=== PATIENT | male | born 2000 ===

== ENCOUNTER 2018-09-27 00:49 | Emergency (ER) | payer SELFPAY ==
[2018-09-27] MEDS ORDERED: NS 1,000 ML IV ONE (00:53)
[2018-09-27] MEDS ORDERED: LORazepam 2 MG/ML INJ IVP ONE (00:54)
[2018-09-27] MEDS ORDERED: METOCLOPRAMIDE 10 MG/2 ML VIAL IVP ONE (00:54)
[2018-09-27] MEDS ORDERED: KETOROLAC 15 MG/1 ML SDV IVP ONE (01:03)
[2018-09-27] MEDS ORDERED: LORazepam 2 MG/ML INJ ONE (02:17)
--- NOTE | 2018-09-27 02:39 | EDPHY ---
H & P Stated Complaint: c/o n/v/d today, states also feels sob, pt hyperventilating Time Seen by Provider: 09/27/18 00:53 HPI/ROS: This patient presents with vomiting diarrhea back pain and dyspnea. He explains that over the past 2 days he has had back pain described as mid thoracic left-sided worse with certain movements or deep breaths achy in nature moderate to severe in intensity. This morning he developed additional vomiting and diarrhea with several episodes since onset of symptoms. He has not had any [id number] medications for symptoms and arrives with his mother by private vehicle for evaluation. He seems anxious on arrival and complains of dyspnea as well. He also reports the pain is back worsens with a deep breath. He describes ache turning more to sharp pain with a deep breath. ROS: Constitutional: No fevers or chills HEENT: No URI symptoms or sore throat. Pulmonary: No coughing recently. No hemoptysis. No respiratory distress Cardiovascular: No heart palpitations or chest pain at rest. No lower extremity swelling or calf pain. No lightheadedness or presyncopal symptoms. GI: He denies any abdominal pain. No hematemesis or hematochezia. : No testicular pain dysuria or hematuria. Integumentary: No diaphoresis or pallor. No skin rash. 10 point review of symptoms is performed and otherwise negative with exception of pertinent positives and negatives listed in HPI and ROS Source: Patient Exam Limitations: No limitations - Personal History Current Tetanus/Diphtheria Vaccine: Unsure Current Tetanus Diphtheria and Acellular Pertussis (TDAP): Unsure - Medical/Surgical History Hx Asthma: No Hx Chronic Respiratory Disease: No Hx Diabetes: No Hx Cardiac Disease: No Hx Renal Disease: No Hx Cirrhosis: No Hx Alcoholism: No Hx HIV/AIDS: No Hx Splenectomy or Spleen Trauma: No - Family History Significant Family History: No pertinent family hx - Social History Smoking Status: Never smoked Alcohol Use: None Drug Use: None - Physical Exam Exam: General Appearance: Pleasant 18-year-old meal appears anxious Alert, no distress. Eyes: Pupils equal and round no pallor or injection. ENT, Mouth: Mucous membranes moist. Respiratory: There are no retractions, lungs are clear to auscultation. No rales or rhonchi. Cardiovascular: Regular rate and rhythm. No murmur gallop rub. No peripheral edema or calf tenderness Gastrointestinal: Abdomen is soft and nontender, no masses, bowel sounds normal. Neurological: GCS 15 Skin: Warm and dry, no rashes. Musculoskeletal: Neck is supple nontender. Extremities are symmetrical, full range of motion. Psychiatric: Mood and affect are normal DIFFERENTIAL DIAGNOSIS: After history and physical exam differential diagnosis was considered for low back strain with viral gastroenteritis, pulmonary embolism, cocaine chest pain, pancreatitis, pneumonia, pneumothorax Constitutional: Initial Vital Signs Temperature (C) 36.8 C 09/27/18 00:53 Heart Rate 84 09/27/18 00:53 Respiratory Rate 28 H 09/27/18 00:53 Blood Pressure 134/64 H 09/27/18 00:53 O2 Sat (%) 99 09/27/18 00:53 O2 Delivery Mode Room Air Allergies/Adverse Reactions: No Known Allergies Allergy (Unverified 09/27/18 00:53) Home Medications: Medication Instructions Recorded Methocarbamol [Robaxin 750 mg (*)] 750 - 1,500 mg PO QID PRN #30 tab 09/27/18 Ondansetron Odt [Zofran Odt] 4 - 8 mg PO Q4PRN PRN #4 tab 09/27/18 Medical Decision Making - Diagnostics EKG Interpretation: 12 lead EKG performed shortly after arrival at 1:15 a.m. Reveals sinus rhythm at 77 Intervals: P R of 175, QRS of 82, QTC of 435 [place]: P of 49, QRS of -56, T of 41 degrees Overall assessment sinus rhythm with left anterior fascicular block J-point elevation anteriorly by my interpretation ED Course/Re-evaluation: IV Reglan and Benadryl with relief of nausea vomiting. He is also treated with Ativan 1 mg and fell sleep thereafter Studies: D-dimer is normal, troponin is normal CBC with mild leukocytosis 14,000. POC basic metabolic panel is normal exception of creatinine 1.4 and LFTs normal exception of bilirubin slightly elevated. Discussion: Patient's EKG is consistent with a young athletic cart with J- point elevation. He denies any drug use. Not think this is cocaine chest pain. I do not think he has pancreatitis given lack of belly pain and a normal amylase and POC testing. Rather, I think the patient has a viral gastroenteritis and likely has a musculoskeletal cause of back pain. I counseled he and mother regarding this. At 2:45 a.m. Patient feels improved with resolution of nausea vomiting improvement in pain after treatment here as above. Will plan to send him out on Zofran, Imodium, NSAIDs and methocarbamol. The understand the need to return should he develop any significant worsening of symptoms despite treatment plan. - Data Points Laboratory Results: 09/27/18 09/27/18 09/27/18 02:26 01:36 01:30 POC Sodium 139 mEq/L mEq/L (135-145) POC Potassium 3.5 mEq/L mEq/L (3.3-5.0) POC Chloride 101.0 mEq/L mEq/L (97-110) POC Total CO2 21 mEq/L L mEq/L (22-31) POC BUN 19 mg/dL mg/dL (7-23) POC Creatinine 1.4 mg/dL H mg/dL (0.7-1.3) POC Glucose 120 mg/dL H mg/dL (70-100) POC Calcium 9.7 mg/dL mg/dL (8.5-10.4) POC Total Bilirubin 1.6 mg/dL H mg/dL (0.1-1.4) POC GGT 10 IU/L IU/L (5-65) POC AST 33 IU/L IU/L (17-59) POC ALT 18 IU/L L IU/L (21-72) POC Alk Phosphatase 67 IU/L IU/L (38-126) POC Troponin I 0.00 ng/mL ng/mL (0.00-0.08) POC Total Protein 7.8 g/dL g/dL (6.3-8.2) POC Albumin 4.6 g/dL g/dL (3.5-5.0) POC Amylase 50 IU/L IU/L (30-110) Medications Given: Discontinued Medications Diphenhydramine HCl (Benadryl Injection) 25 mg IVP EDNOW ONE Stop: 09/27/18 00:55 Last Admin: 09/27/18 01:24 Dose: 25 mg Sodium Chloride (Ns) 1,000 mls @ 0 mls/hr IV EDNOW ONE; Wide Open PRN Reason: Protocol Stop: 09/27/18 00:54 Last Admin: 09/27/18 01:23 Dose: 1,000 mls Ketorolac Tromethamine (Toradol) 15 mg IVP EDNOW ONE Stop: 09/27/18 01:04 Last Admin: 09/27/18 01:25 Dose: 15 mg Lorazepam (Ativan Injection) 1 mg IVP EDNOW ONE Stop: 09/27/18 00:55 Last Admin: 09/27/18 01:24 Dose: 1 mg Metoclopramide HCl (Reglan Injection) 5 mg IVP EDNOW ONE Stop: 09/27/18 00:55 Last Admin: 09/27/18 01:24 Dose: 5 mg Point of Care Test Results: CBC CBC Collection Date 09/27/18 CBC Collection Time 01:15 WBC 14.38 RBC 5.87 HGB 17.5 HCT 49.5 PLT 254 Neut # 13.09 Neut 91.1 LYMPH # 0.39 LYMPH 2.7 MCV 84.3 Chemistry 09/27/18 09/27/18 09/27/18 02:26 01:36 01:30 POC Sodium 139 mEq/L mEq/L (135-145) POC Potassium 3.5 mEq/L mEq/L (3.3-5.0) POC Chloride 101.0 mEq/L mEq/L (97-110) POC Total CO2 21 mEq/L L mEq/L (22-31) POC BUN 19 mg/dL mg/dL (7-23) POC Creatinine 1.4 mg/dL H mg/dL (0.7-1.3) POC Glucose 120 mg/dL H mg/dL (70-100) POC Calcium 9.7 mg/dL mg/dL (8.5-10.4) POC Total Bilirubin 1.6 mg/dL H mg/dL (0.1-1.4) POC GGT 10 IU/L IU/L (5-65) POC AST 33 IU/L IU/L (17-59) POC ALT 18 IU/L L IU/L (21-72) POC Alk Phosphatase 67 IU/L IU/L (38-126) POC Troponin I 0.00 ng/mL ng/mL (0.00-0.08) POC Total Protein 7.8 g/dL g/dL (6.3-8.2) POC Albumin 4.6 g/dL g/dL (3.5-5.0) POC Amylase 50 IU/L IU/L (30-110) D-Dimer D-Dimer Collection Date 09/27/18 D-Dimer Collection Time 01:15 D-Dimer (ng/ml) <100 Departure - Departure Disposition: Home, Routine, Self-Care Clinical Impression: Musculoskeletal back pain, Pleuritic chest pain, Viral gastroenteritis Instructions: Ondansetron (By mouth) Additional Instructions: Diagnoses: 1. Viral gastroenteritis 2. Musculoskeletal back pain 2. Pleuritic chest pain Plan: Light diet until he feels improved Plenty fluids Zofran for nausea vomiting if needed [id number] Imodium for diarrhea if needed Methocarbamol muscle relaxant and ibuprofen for back pain and musculoskeletal pains as needed. Symptoms should improve in the next 2 days Follow up primary care physician for any ongoing symptoms Return emergency department for any significant worsening despite the treatment plan Referrals: Patient,NotPresent [Primary Care Provider] - As per Instructions Kelsea Santiago MD [Medical Doctor] - As per Instructions Prescriptions: Methocarbamol [Robaxin 750 mg (*)] 750 - 1,500 mg PO QID PRN #30 tab PRN Reason: Muscle Spasms Ondansetron Odt [Zofran Odt] 4 - 8 mg PO Q4PRN PRN #4 tab PRN Reason: Vomiting
[2018-09-27] MEDS ORDERED: ONDANSETRON 4MG PREPACK#2 BTL TAKEHOME ONE (02:50)
--- NOTE | 2018-09-27 03:00 | CPEKG ---
Test Reason : OPEN Blood Pressure : / mmHG Vent. Rate : 077 BPM Atrial Rate : 077 BPM P-R Int : 175 ms QRS Dur : 082 ms QT Int : 384 ms P-R-T Axes : 049 -56 041 degrees QTc Int : 435 ms Sinus rhythm Left anterior fascicular block J pt. elevation, anterior leads Confirmed by Antione Galindo ([id number] on 09/27/2018 3:00:26 AM Referred By: Antione Galindo Confirmed By:Antione Galindo
[2018-09-27 03:10] VITALS: BP 114/59
== END 2018-09-27 03:05 | disposition home or self-care (01) ==
LOC: CED 00:49
DX: K52.9 Noninfective gastroenteritis and colitis, unspecified (principal)
CPT/HCPCS: 71046-PO; 80048-ER; 80076-ER; 82150-ER; 84484-ER; 96361-ER; 96374-ER; 96375-ER; J1200; J1885; J2060; J2765